=== PATIENT | female | born 1975 | race Caucasian/White ===

== ENCOUNTER 2016-06-25 00:25 | Emergency (ER) | payer OTHER ==
[~2016-06-25] VITALS: Ht 180.3 cm; Wt 116.5 kg
[~2016-06-25 00:25] MED LIST: AMOX875 PO; MEDR4PAK3 PO; MOTR200T PO
[2016-06-25 00:42] VITALS: BP 134/93; PULSE 75; RESP 18; TEMP 98.5; O2SAT 99
[2016-06-25] MEDS ORDERED: SODIUM CHLOR 0.9% 1000 ML INJ 1,000 ML IV ONE (00:48)
[2016-06-25] MEDS ORDERED: ONDANSETRON HCL 4 MG/2 ML VIAL IVP ONE (01:00)
[2016-06-25] MEDS ORDERED: SODIUM CHLORIDE 0.9% FLUSH 5 ML FLUSH IVF PRN (01:00)
[2016-06-25] MEDS ORDERED: KETOROLAC TROMETHAMINE 30 MG/ML (IVP) VIAL IVP ONE (01:00)
[2016-06-25 01:12] LABS: BLOOD, URINE LARGE (NEG); GLUCOSE,URINE NEG (NEG); KETONE, URINE TRACE mg/dL (NEG); NITRITE,URINE NEG (NEG)
[2016-06-25 01:20] LABS: RBC, URINE 15-19 /hpf (0-3); URINE COLOR YELLOW (YELLW/STRAW)
[2016-06-25 01:21] LABS: BACTERIA, URINE MOD /hpf; COMMENT (UR) CULTURE INDICATED; CULTURE IF INDICATED CULTURE INDICATED
[2016-06-25 01:39] LABS: BASOPHIL # 0.1 TH/MM3 (0-0.2); BASOPHIL % 0.7 % (0.0-2.0); EOSINOPHIL # 0.1 TH/MM3 (0-0.4); EOSINOPHIL % 1.3 % (0.0-4.0); HEMATOCRIT 40.2 % (35.0-46.0); HEMO FLAGS DIFF FINAL; LYMPH % 29.4 % (9.0-44.0); LYMPHOCYTE # 2.4 TH/MM3 (1.0-4.8); MEAN CELL VOLUME 90.2 FL (80.0-100.0); MEAN CORPUSCULAR HEMOGLOBIN 30.5 PG (27.0-34.0); MEAN CORPUSCULAR HGB CONC 33.9 % (32.0-36.0); NEUT % 61.6 % (16.0-70.0); PLATELET COUNT 356 TH/MM3 (150-450); RED BLOOD COUNT 4.46 MIL/MM3 (4.00-5.30); RED CELL DISTRIBUTION WIDTH 12.2 % (11.6-17.2); WHITE BLOOD COUNT 8.2 TH/MM3 (4.0-11.0)
--- NOTE | 2016-06-25 01:54 | RADHPO ---
EXAM DATE/TIME: 06/25/2016 01:16 [place] COMPARISON: No previous studies available for comparison. INDICATIONS : Left sided flank pain. ORAL CONTRAST: No oral contrast ingested. RADIATION DOSE: 27.77 CTDIvol (mGy) MEDICAL HISTORY : None SURGICAL HISTORY : Cholecystectomy. Hysterectomy. ENCOUNTER: Initial ACUITY: 1 day PAIN SCALE: 7/10 LOCATION: Left flank TECHNIQUE: Volumetric scanning of the abdomen and pelvis was performed. Using automated exposure control and ad justment of the mA and/or kV according to patient size, radiation dose was kept as low as reasonably achievable to obtain optimal diagnostic quality images. FINDINGS: Patient is status post cholecystectomy. Liver, spleen, pancreas, adrenal glands are unremarkable. The re are bilateral nonobstructing calculi present within upper poles measuring 2 mm bilaterally on axia l image 39. There is slight dilatation of the left intrarenal collecting system and proximal ureter s econdary to a left proximal ureteral calculus measuring 4 mm on image 68. There is a cyst at the midp ole of the left kidney measuring 1.7 cm anteriorly. Urinary bladder and uterus are unremarkable. No a dnexal masses. No adenopathy or aneurysm. Stomach, small bowel, large bowel and appendix are normal. Osseous structures are intact. Lung bases are clear. CONCLUSION: 1. Mild left hydronephrosis and proximal hydroureter secondary to a calculus within the left proximal ureter. 2. Bilateral nonobstructing renal calculi. 3. Left renal cyst. Scottie Vu MD on June 25, 2016 at 1:50 Board Certified Radiologist. This report was verified electronically.
--- NOTE | 2016-06-25 02:01 | PD ---
HPI Chief Complaint: Flank/Kidney Pain Time Seen by Provider: 00:48 Travel History International Travel<30 days: No Contact w/Intl Traveler<30days: No Traveled to known affect area: No History of Present Illness HPI 41-year-old female presents to the emergency department by private transportation the care of her spouse for evaluation of sudden onset left flank pain radiating to the right lower quadrant of the abdomen with associated nausea and vomiting. No fever no chills no hematuria no dysuria frequency urgency. Patient denies injury. No referred back or lower extremity pain. No prior history of kidney stones. Pain is 1/10 in intensity at this time; colicky in nature. Unable to identify exacerbating or alleviating factors. PFSH Past Medical History Narrative Medical Negative past, history tubal ligation and hysterectomy eye surgery no tobacco use nursing notes reviewed Medical History: Denies Significant Hx Cancer: No Diabetes: No Diminished Hearing: No Glaucoma: No Hepatitis: No Hiatal Hernia: No Hypertension: No Thyroid Disease: No Tetanus Vaccination: < 5 Years ?: Not : 3 Para: 2 Miscarriage: 1 Tubal Ligation: Yes Past Surgical History Abdominal Surgery: Yes (lap matthew) Cholecystectomy: Yes Eye Surgery: Yes (LASIK) Gynecologic Surgery: Yes (tubaligation) Hysterectomy: Yes Pacemaker: No Other Surgery: Yes Social History Alcohol Use: No Tobacco Use: No Substance Use: No Allergies-Medications (Allergen,Severity, Reaction): Coded Allergies: No Known Allergies (Verified , 06/25/16) Reported Meds & Prescriptions Reported Meds & Active Scripts Active Medrol Dosepak (Methylprednisolone) 4 Mg Alexandro 4 Mg PO DIRECTED TAKE DIRECTED Amoxil (Amoxicillin) 875 Mg Tab 875 Mg PO BID 10 Days Reported Ibuprofen 200 Mg Tab 200 Mg PO Q6H PRN Review of Systems Except as stated in HPI: all other systems reviewed are Neg General / Constitutional: No: Fever, Chills HENT: No: Congestion Cardiovascular: No: Chest Pain or Discomfort Respiratory: No: Shortness of Breath Gastrointestinal: Positive: Nausea, Vomiting, Abdominal Pain Genitourinary: Positive: Flank Pain, No: Dysuria Musculoskeletal: No: Myalgias, Arthralgias Skin: No Rash Neurologic: No: Weakness Psychiatric: No: Anxiety Hematologic/Lymphatic: No: Easy Bruising Physical Exam Narrative GENERAL: Well-developed well-nourished female in obvious discomfort but no respiratory distress SKIN: Warm and dry. HEAD: Normocephalic. EYES: No scleral icterus. No injection or drainage. NECK: Supple, trachea midline. No JVD or lymphadenopathy. CARDIOVASCULAR: Regular rate and rhythm without murmurs, gallops, or rubs. RESPIRATORY: Breath sounds equal bilaterally. No accessory muscle use. GASTROINTESTINAL: Abdomen soft, mild left lower quadrant tenderness to palpation without guarding or rebound, nondistended. MUSCULOSKELETAL: No cyanosis, or edema. BACK: Nontender without obvious deformity. Left-sided CVA tenderness. Data Data Last Documented VS Vital Signs Date Time Temp Pulse Resp B/P Pulse Ox O2 Delivery O2 Flow Rate FiO2 06/25/16 01:40 16 06/25/16 00:42 98.5 75 134/93 99 Orders Complete Blood Count With Diff (06/25/16 00:48) Basic Metabolic Panel (Bmp) (06/25/16 00:48) Urinalysis - C+S If Indicated (06/25/16 00:48) Ct Abd/Pel W/O Iv Contrast (06/25/16 00:48) Ecg Monitoring (06/25/16 00:48) Iv Access Insert/Monitor (06/25/16 00:48) Ketorolac Inj (Toradol Inj) (06/25/16 01:00) Ondansetron Inj (Zofran Inj) (06/25/16 01:00) Sodium Chloride 0.9% Flush (Ns Flush) (06/25/16 01:00) Sodium Chlor 0.9% 1000 Ml Inj (Ns 1000 M (06/25/16 00:48) Urine Culture (06/25/16 01:00) Ceftriaxone Inj (Rocephin Inj) (06/25/16 02:15) Labs Laboratory Tests Test 06/25/16 06/25/16 01:00 01:18 Urine Color YELLOW Urine Turbidity SLIGHT Urine pH 6.0 Urine Specific [place] 1.026 Urine Protein TRACE mg/dL Urine Glucose (UA) NEG mg/dL Urine Ketones TRACE mg/dL Urine Occult Blood LARGE Urine Nitrite NEG Urine Bilirubin NEG Urine Leukocyte Esterase TRACE Urine RBC 15-19 /hpf Urine WBC 3-5 /hpf Urine Squamous Epithelial 6-8 /hpf Cells Urine Bacteria MOD /hpf Microscopic Urinalysis Comment CULTURE INDICATED White Blood Count 8.2 TH/MM3 Red Blood Count 4.46 MIL/MM3 Hemoglobin 13.6 GM/DL Hematocrit 40.2 % Mean Corpuscular Volume 90.2 FL Mean Corpuscular Hemoglobin 30.5 PG Mean Corpuscular Hemoglobin 33.9 % Concent Red Cell Distribution Width 12.2 % Platelet Count 356 TH/MM3 Mean Platelet Volume 8.7 FL Neutrophils (%) (Auto) 61.6 % Lymphocytes (%) (Auto) 29.4 % Monocytes (%) (Auto) 7.0 % Eosinophils (%) (Auto) 1.3 % Basophils (%) (Auto) 0.7 % Neutrophils # (Auto) 5.0 TH/MM3 Lymphocytes # (Auto) 2.4 TH/MM3 Monocytes # (Auto) 0.6 TH/MM3 Eosinophils # (Auto) 0.1 TH/MM3 Basophils # (Auto) 0.1 TH/MM3 CBC Comment DIFF FINAL Differential Comment Sodium Level 140 MEQ/L Potassium Level 3.6 MEQ/L Chloride Level 105 MEQ/L Carbon Dioxide Level 24.2 MEQ/L Anion Gap 11 MEQ/L Blood Urea Nitrogen 15 MG/DL Creatinine 0.87 MG/DL Estimat Glomerular Filtration 72 ML/MIN Rate Random Glucose 117 MG/DL Calcium Level 9.2 MG/DL MDM Medical Decision Making Medical Screen Exam Complete: Yes Emergency Medical Condition: Yes Medical Record Reviewed: Yes Interpretation(s) CT abd/pel:FINDINGS: Patient is status post cholecystectomy. Liver, spleen, pancreas, adrenal glands are unremarkable. There are bilateral nonobstructing calculi present within upper poles measuring 2 mm bilaterally on axial image 39. There is slight dilatation of the left intrarenal collecting system and proximal ureter secondary to a left proximal ureteral calculus measuring 4 mm on image 68. There is a cyst at the midpole of the left kidney measuring 1.7 cm anteriorly. Urinary bladder and uterus are unremarkable. No adnexal masses. No adenopathy or aneurysm. Stomach, small bowel, large bowel and appendix are normal. Osseous structures are intact. Lung bases are clear. CONCLUSION: 1. Mild left hydronephrosis and proximal hydroureter secondary to a calculus within the left proximal ureter. 2. Bilateral nonobstructing renal calculi. 3. Left renal cyst. Scottie Vu MD on June 25, 2016 at 1:50 Board Certified Radiologist. This report was verified electronically. Vital Signs Date Time Temp Pulse Resp B/P Pulse Ox O2 Delivery O2 Flow Rate FiO2 06/25/16 01:40 16 06/25/16 00:42 98.5 75 18 134/93 99 CBC & BMP Diagram 06/25/16 01:18 ua: Positive blood positive leukocyte Estrace positive bacteria culture indicated Differential Diagnosis Flank pain, renal colic/instructor uropathy, UTI, pyelonephritis, musculoskeletal pain Narrative Course 41-year-old female with sudden onset left flank pain associated with nausea vomiting and radiating to the left lower quadrant consistent with probable right kidney stone with mild obstructive uropathy also evaluate for urinary tract infection and pyelonephritis. No fever or chills. Patient rates pain as moderate and worsening. No medications prior to arrival to the emergency department. Specimens collected and sent for resulting patient administered normal saline bolus Toradol 30 mg IV Zofran [address] abdomen and pelvis kidney stone protocol ordered CT consistent with mild obstructive uropathy with mild hydronephrosis and 4 mm proximal left ureteral stone. Urinalysis consistent with urinary infection moderate bacteria positive leukocyte Estrace positive blood and few WBCs cultures indicated; patient given first dose of antibiotic Rocephin 1 g IV piggyback. Pain is controlled. Patient is stable for outpatient management. Diagnosis Primary Impression: Ureterolithiasis Additional Impression: Bacteriuria Referrals: Urologist call for appointment Floor Coverings Installer --- Dr Magana Patient Instructions: General Instructions Additional Instructions: Increase fluid hydration Complete course of antibiotic as prescribed Follow-up with urologist Strain urine Take narcotic pain medication as prescribed as needed Take anti-inflammatory pain medication as prescribed as needed for pain associated with inflammation or may be used for fever 100.4F or greater Use medication for nausea and vomiting as prescribed as needed Return to the emergency department for any concerns or change in condition May use acetaminophen/Tylenol as often as every 4 hours as needed for fever 100.4F or greater Med/Other Pt SpecificInfo: Prescription(s) given Scripts Ibuprofen 800 Mg [id number] Mg PO Q8H PRN (PAIN GREATER THAN 5) #10 TAB Ref 0 Prov:Nati Weber MD 06/25/16 Hydrocodone-Acetaminophen (Lortab)5-325 Mg Tab1 Tab PO Q6H PRN (PAIN) #10 TAB Ref 0 Prov:Nati Weber MD 06/25/16 Ondansetron Odt (Zofran Odt)4 Mg Tab4 Mg SL Q6HR PRN (Nausea/Vomiting) #14 TAB Ref 0 Prov:Nati Weber MD 06/25/16 Sulfamethoxazole-Trimethoprim (Bactrim DS)800-160 Mg Tab1 Tab PO BID #14 TAB Ref 0 Prov:Nati Weber MD 06/25/16 Disposition: 01 DISCHARGE HOME Condition: Stable Nati Weber MD Jun 25, 2016 02:01
[2016-06-25 02:07] LABS: POTASSIUM 3.6 MEQ/L (3.5-5.1)
[2016-06-25 02:09] LABS: BICARBONATE 24.2 MEQ/L (21.0-32.0)
[2016-06-25] MEDS ORDERED: cefTRIAXone INJ 1,000 MG in SODIUM CHLORIDE 0.9% INJ 100 ML IV ONE (02:15)
[2016-06-25] MEDS ORDERED: IBUP800T23 PO (02:20)
[2016-06-25] MEDS ORDERED: ZOFR4TAB3 SL (02:20)
[2016-06-25] MEDS ORDERED: BACT800T5 PO (02:20)
[2016-06-25] MEDS ORDERED: HYDR-3533 PO (02:20)
[2016-06-25] MEDS ORDERED: HYDROmorphone HCL PF 1 MG/ML VIAL IV PUSH ONE (02:45)
[2016-06-25] MEDS ORDERED: ONDANSETRON HCL 4 MG/2 ML VIAL IV PUSH ONE (02:45)
[2016-06-25 03:18] VITALS: BP 140/73
[2016-06-25 03:20] VITALS: RESP 16
== END 2016-06-25 03:21 | disposition home or self-care (01) ==
LOC: PHED 00:25 → PHEFT 03:21
DX: N13.2 Hydronephrosis with renal and ureteral calculous obstruction (principal); R82.71 Bacteriuria
CPT/HCPCS: 74176; 80048; 81001; 85025; 87086; 96361; 96365; 96375; 96376; 99284; J0696; J1170; J1885; J2405; J7030

== ENCOUNTER 2017-05-16 09:01 | Emergency (ER) | payer OTHER ==
[~2017-05-16] VITALS: Ht 180.3 cm; Wt 109.0 kg
[~2017-05-16 09:01] MED LIST changes: +BACT800T5 PO; +HYDR-3533 PO; +IBUP1TAB7 PO; +ZOFR4TAB3 SL
[2017-05-16 09:03] VITALS: BP 133/83; PULSE 109; RESP 14; TEMP 98.3; O2SAT 99
[2017-05-16] MEDS ORDERED: AMBI10TA PO (09:21)
[2017-05-16] MEDS ORDERED: PERM5CRE11 TOPICAL (09:23)
--- NOTE | 2017-05-16 09:23 | PD ---
HPI Chief Complaint: Skin Problem Time Seen by Provider: 09:19 Travel History International Travel<30 days: No Contact w/Intl Traveler<30days: No Traveled to known affect area: No History of Present Illness HPI 42-year-old female presents emergency Department with complaint of scabies rash to bilateral hands, waistline, and bilateral upper arms 2 weeks. Reports exposure to scabies. Denies fever, vomiting. Reports rash is itchy. Symptoms are mild in severity. Has tried hydrocortisone cream for symptom management. No known relieving or aggravating factors. Denies allergies. Dr. Jarrett his primary care provider. Denies significant past medical history. Has no other medical complaints. No other modifying factors or associated signs and symptoms. PFSH Past Medical History Cancer: No Diabetes: No Diminished Hearing: No Glaucoma: No Hepatitis: No Hiatal Hernia: No Hypertension: No Thyroid Disease: No ?: Not : 3 Para: 2 Miscarriage: 1 Tubal Ligation: Yes Past Surgical History Abdominal Surgery: Yes (lap matthew) Cholecystectomy: Yes Eye Surgery: Yes (LASIK) Gynecologic Surgery: Yes (tubaligation) Hysterectomy: Yes Pacemaker: No Other Surgery: Yes Social History Alcohol Use: No Tobacco Use: No Substance Use: No Allergies-Medications (Allergen,Severity, Reaction): Coded Allergies: No Known Allergies (Verified Adverse Reaction, Unknown, 05/16/17) Reported Meds & Prescriptions Reported Meds & Active Scripts Active Elimite Topical (Permethrin) 5% Cream 1 Applic TOPICAL ONCE Reported Ambien (Zolpidem Tartrate) 10 Mg Tab 10 Mg PO HS PRN Review of Systems Except as stated in HPI: all other systems reviewed are Neg Physical Exam Narrative GENERAL: Well-nourished, well-developed female patient, in no acute distress; afebrile, nontoxic-appearing SKIN: Warm and dry. Generalized erythremic pimple-like rash to bilateral hands , bilateral biceps areas, waistline; some areas appear excoriated. No areas with cellulitic process noted. HEAD: Atraumatic. Normocephalic. EYES: Pupils equal and round. No scleral icterus. No injection or drainage. ENT: Mucosa pink and moist. Airway patent. NECK: Trachea midline. CARDIOVASCULAR: Regular rate. RESPIRATORY: No accessory muscle use. GASTROINTESTINAL: Flat. MUSCULOSKELETAL: No obvious deformities. No clubbing. No cyanosis. No edema. NEUROLOGICAL: Awake and alert. Oriented 3. No obvious cranial nerve deficits. Motor grossly within normal limits. Normal speech. PSYCHIATRIC: Appropriate mood and affect; insight and judgment normal. Data Data Last Documented VS Vital Signs Date Time Temp Pulse Resp B/P (MAP) Pulse Ox O2 Delivery O2 Flow Rate FiO2 05/16/17 09:42 05/16/17 09:03 98.3 109 14 99 Orders Orders Ed Discharge Order (05/16/17 09:23) [facility] Medical Decision Making Medical Screen Exam Complete: Yes Emergency Medical Condition: Yes Medical Record Reviewed: Yes Differential Diagnosis scabies, nonspecific rash or skin interruption, contact dermatitis Narrative Course 42-year-old female physical exam consistent with scabies rash. Positive exposure to scabies. Patient is [employer] employee and was seen by employee med and told to come to the emergency room for prescription for Elimite cream. Patient is afebrile and nontoxic-appearing. Denies fever, vomiting. Elimite cream prescribed for home. Instructed patient to follow up with primary care provider. Patient verbalizes understanding and agreement with treatment plan. Patient is medically cleared and stable for discharge. Discussed reasons to return to the emergency department. Patient agrees with treatment plan. The patients vital signs are stable and the patient is stable for outpatient follow- up and treatment. Patient discharged home, stable and in no acute distress. Diagnosis Primary Impression: Scabies Referrals: Primary Care Physician Patient Instructions: General Instructions, Scabies (ED) Additional Instructions: Elimite cream as directed; repeat in one week as needed Soaking in cool water or apply cool, wet washcloths to irritated areas to minimize itching Apply anti-itch creams, such as calamine lotion, to relieve pain and itching as needed Mnvl-aef-[id number] antihistamines as needed and as directed to relieve allergic symptoms caused by scabies Wash all pillows, linens, blankets, etc. in hot water and dry in hot dryer Bag and all unwashable linens, Larned stuffed animals, etc. in a tightly sealed garbage bag for up to 2 weeks Follow-up with operations research group manager Follow-up with primary care provider Return to the emergency department immediately with worsening of symptoms Med/Other Pt SpecificInfo: Prescription(s) given Scripts Permethrin Topical (Elimite Topical) 5% Cream 1 APPLIC TOPICAL ONCE for Scabies, #1 TUBE 1 Refill Prov: Bebe Aguirre 05/16/17 Disposition: 01 DISCHARGE HOME Condition: Stable Bebe Aguirre May 16, 2017 09:23
== END 2017-05-16 09:43 | disposition home or self-care (01) ==
LOC: NEPK 09:01
DX: B86 Scabies (principal)
CPT/HCPCS: 99283